=== PATIENT | female | born 1990 | race Caucasian/White ===

== ENCOUNTER → 2018-10-07 | Outpatient (CLI) | payer SELFPAY ==
[2018-10-07 11:01] VITALS: BMI 22.7
[2018-10-07 12:02] LABS: Absolute Lymphocyte Count 2.55 X10^3/uL (0.83-4.51); Absolute Neutrophil Count 7.2 X10^3/uL (2.0-7.7); Basophil# 0.02 X10^3/uL; Basophil% 0.2 % (0-1); Eosinophil# 0.02 X10^3/uL; Eosinophils% 0.2 % (0-5); Hematocrit 39.7 % (37-47); Hemoglobin 13.2 g/dL (12.0-15.0); Lymphocyte # 2.55 X10^3/ul (4.0); Mean Corp Hgb Conc 33.2 g/dL (32-36); Mean Corpuscular Volume 96.1 fL (81-99); Mean Platelet Vol. 10.9 fl (6.2-12.0); Monocyte# 0.43 X10^3/uL; Monocyte% 4.2 % (0-10); NRBC Flagged by Analyzer 0 % (0-5); Neutrophil # 7.15 X10^3/uL (2.7-7.7); Neutrophil % 69.9 % (47-70); Platelet Count 163 K/mm3 (150-450); RBC Distribution Width SD 45.4 fl (35.1-43.9); Red Blood Count 4.13 M/mm3 (4.2-5.4); White Blood Count 10.2 K/mm3 (4.4-11.0)
== END | disposition home or self-care (01) ==
PROVIDERS: Nurse Practitioner Women's Health; Referring Provider Obstetrics & Gynecology; Visit Provider Obstetrics & Gynecology
DX: Z34.90 Encounter for supervision of normal pregnancy, unspecified, unspecified trimester (principal)
CPT/HCPCS: 36415; 85025

== ENCOUNTER → 2018-12-11 | Outpatient (CLI) | payer SELFPAY ==
[2018-12-11 09:33] VITALS: BMI 22.7
== END | disposition home or self-care (01) ==
LOC: LABSPEC 12:58
PROVIDERS: Referring Provider Nurse Practitioner Women's Health; Visit Provider Nurse Practitioner Women's Health
DX: Z34.93 Encounter for supervision of normal pregnancy, unspecified, third trimester (principal); Z3A.36 36 weeks gestation of pregnancy
CPT/HCPCS: 87081

== ENCOUNTER 2018-12-17 08:15 | Inpatient (IN) | payer SELFPAY ==
[2018-12-16 12:10] VITALS: BMI 22.7
[2018-12-17 08:49] VITALS: BMI 24.0
[2018-12-17] MEDS: Lactated Ringers 1,000 ML 50 ML IV (08:55)
[2018-12-17 09:07] LABS: Absolute Lymphocyte Count 1.63 X10^3/uL (0.83-4.51); Absolute Neutrophil Count 10.3 X10^3/uL (2.0-7.7); Basophil# 0.02 X10^3/uL; Basophil% 0.2 % (0-1); Eosinophil# 0.02 X10^3/uL; Eosinophils% 0.2 % (0-5); Hematocrit 41.4 % (37-47); Lymphocyte # 1.63 X10^3/ul (4.0); Lymphocyte % 13.1 % (19-41); Mean Corp Hgb Conc 33.8 g/dL (32-36); Mean Corpuscular Volume 94.7 fL (81-99); Mean Platelet Vol. 11.5 fl (6.2-12.0); Monocyte# 0.41 X10^3/uL; Monocyte% 3.3 % (0-10); NRBC Flagged by Analyzer 0 % (0-5); Neutrophil # 10.33 X10^3/uL (2.7-7.7); Neutrophil % 82.7 % (47-70); Platelet Count 145 K/mm3 (150-450); RBC Distribution Width CV 12.8 % (11.6-14.6); RBC Distribution Width SD 44.9 fl (35.1-43.9); Red Blood Count 4.37 M/mm3 (4.2-5.4); White Blood Count 12.5 K/mm3 (4.4-11.0)
--- NOTE | 2018-12-17 09:19 | PCM.HP.OB ---
- Problem List (1) History of PROM (premature rupture of membranes), currently Status: Acute Qualifiers: Comment: Del at 36.1 due to PROM, no progesterone injections rec by previous provider, patient declines. (2) Status: Acute Qualifiers: Comment: declined genetic screening; home BS testing for diabetes screening negative. negative urine culture on 06/12/2018 (3) Shingles outbreak Status: Acute Qualifiers: Comment: first trimester (4) Supervision of other normal Status: Acute Comment: PRR DENISE 01/[birth year]/19 girl Nidia JEAN Diaz Spouse:Dk GERARD at 27 wk from [facility] History Date of Admission: 12/17/18 Final DENISE: 01/06/19 Gestational age: 37 Weeks and 1 Days History of this : This is a 27 year-old, , at 37 weeks gestational age presents with SROM clear fluid in active labor 4 cm. she is doing well and tolerating contractions. 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 Date Name GA/Weeks Outcome Route Bth Weight Infant Gen Labor Lgth Anesthesia Del Locatn Provider FOB 08/15/15 Emily 36 live - 6 lbs. 5 oz. Dk Labs: DENISE Calculator Estimated Delivery Date Method Current WG Current Estimate 01/06/19 LMP (Certain) 37w 0d Expected Delivery Route/Plan - 27 week GERARD [facility], from [place] Labor Preferences- labor support person: dk pain management options preferred: minimal intervention cut cord/dad catch: : yes PP control planned: discussed possible routes of delivery and associated risks: [] special requests: [] Specific Issue/Plans flu vaccine: declined tdap vaccine: declined rhogam: na LARC form signed: declined Mom's Labs & Results 12/17/18 12/17/18 08:55 08:55 WBC 12.5 H RBC 4.37 Hgb 14.0 Hct 41.4 MCV 94.7 MCH 32.0 MCHC 33.8 RDW Std Deviation 44.9 H RDW Coeff of Leighton 12.8 Plt Count 145 L MPV 11.5 Immature Gran % (Auto) 0.500 Neut % (Auto) 82.7 H Lymph % (Auto) 13.1 L [place] % (Auto) 3.3 Eos % (Auto) 0.2 Baso % (Auto) 0.2 Absolute Neuts (auto) 10.3 H Absolute Lymphs (auto) 1.63 Nucleated RBC % 0 Blood Type Pending Antibody Screen Pending Course Did the patient receive Yes care? Labs Blood Type: O RH: POSITIVE RPR/VDRL/Syphilis Nonreactive Rubella status Immune HbSAg Negative Date Done: 06/12/18 Chlamydia Negative Gonorrhea Negative HIV/AIDS Non-Reactive Group B Strep: Negative Current Obstetrical History Gestational Diabetes No Incompetent Cervix No Infertility No IUGR No Macrosomia No Hypertension/Pre-eclampsia No Placenta Previa/Abruption No PTL/PROM No Uterine anomaly No Oligohydramnios No Polyhydramnios No Multiple gestation No Past Medical History Asthma No Diabetes No Hypertension No Heart disease No Mitral valve prolapse No Neurologic/Seizure disorder/ No Migraines Kidney disease No Liver disease No Varicosities No Clotting disorders/Hx of DVT No Thyroid Dysfunction No Other medical diseases Yes Psychiatric disorders No Major trauma No Abnormal PAP smear No Sleep apnea No Mammogram in the last 2 years No Enter DETAILS of medical raynaud's history Social History Marital Status: Alleged father Dk Hx Smoking No Smoking Status Never smoker How long have you used n/a substances (years)? Expected Delivery Method: Spontaneous Vaginal Review of Systems Constitutional: Denies: Fever, Malaise Eyes: Denies: Blurred vision, Vision Change HEENT: Denies: Head Aches, Visual Changes Cardiovascular: Denies: Chest Pain, Palpitations Respiratory: Denies: Cough, Shortness of Breath, Wheezing Gastrointestinal: Denies: Abdominal Pain, Diarrhea, Nausea, Vomiting Genitourinary: Denies: Dysuria, Hematuria Musculoskeletal: Denies: Joint Pain, Muscle pain Skin: Denies: Lesions, Rash Neurological: Denies: Blurred vision, Focal weakness, Headaches Psychiatric: Denies: Anxiety, Depression Endocrine: Denies: Heat/ Cold Intolerance Hematologic/ Lymphatic: Denies: Easy Bruising, Easy Bleeding Physical Exam General: Alert, Cooperative, No apparent distress HEENT: Atraumatic, Normocephalic. Negative for: Thyromegaly, Lymphadenopathy Cardiovascular: Regular rate Lungs: Normal air movement Abdomen: Soft, Non Tender, Gravid Neurological: Deep Tendon Reflexes 2+/4 and Symmetrical, Neuro grossly intact. 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 Negative for: Vulvar lesions Estimated gestational size: Appropriate for gestational size Presentation: Cephalic Cervix Dilation (cm): 4 Assessment/Plan All Active Problems (Last Reviewed 12/16/18 @ 12:09 by Emma Grimes) Shingles outbreak (Acute) History of PROM (premature rupture of membranes), currently (Acute) (Acute) Supervision of other normal (Acute) This is a 27 year-old, at 37 weeks gestational age presents with SROM IAL Patient presents IAL, plan expectant management for , pitocin if needed. Pain management: Refers minimal intervention. GBS negative. Management of any complications: None I have reviewed the [facility] and made any clinically relevant updates.
[2018-12-17] MEDS: Oxytocin 30 units/NS 500 ml 30 UNITS/500 ML IV.SOLN 334 UNITS IV (12:22)
--- NOTE | 2018-12-17 12:48 | PCM.OPRPT ---
Problem List (1) History of PROM (premature rupture of membranes), currently Status: Acute Qualifiers: Comment: Del at 36.1 due to PROM, no progesterone injections rec by previous provider, patient declines. (2) Status: Acute Qualifiers: Comment: declined genetic screening; home BS testing for diabetes screening negative. negative urine culture on 06/12/2018 (3) Shingles outbreak Status: Acute Qualifiers: Comment: first trimester (4) Supervision of other normal Status: Acute Comment: PRR DENISE 01/06/19 girl Nidia Diaz Spouse:Luis GEE at 27 wk from [facility] Vaginal Delivery Maternal Presentation: Active Labor ial 37 weeks Amniotic Membrane Rupture Type: Spontaneous at home Amniotic Fluid Description: Clear Final DENISE: 01/05/19 Gestational age: 37 Weeks and 2 Days Date of Procedure: 12/17/18 Pre-Operative Diagnosis: ial Post-Operative Diagnosis: same Surgery/ Procedure Performed: Spontaneous Vaginal Delivery Description of Procedure: Patient began pushing and delivered the head in the JENNIFER presentation. The head was delivered atraumatically and a loose nuchal cord ?1 was identified and easily reduced over the 's head. The anterior and posterior shoulders delivered without complication followed by the rest of the infant and the infant was placed on the maternal abdomen. Delayed cord clamping was employed for approximately 60 seconds. Cord was clamped and cut and gentle traction was applied to the cord and the placenta delivered spontaneously immediately following it was noted to be intact with three-vessel cord. The perineum and vagina were inspected and noted to have no laceration. EBL was 200. Patient and tolerated delivery well. Presentation: JENNIFER Placental Delivery Description: Spontaneous Placenta Disposition: [facility] Cord Vessel Description: 3 Vessels Cord Entanglement: Around neck x 1, loose Estimated Blood Loss: 200 A gender: Female Episiotomy Description: None Laceration: None Medications given after delivery: IV Pitocin Complications: None Multi Select Codes - Urinary/Genital Urinary/Genital CPT Codes: 90901 Vaginal Delivery [facility]
[2018-12-17] MEDS: 0.9% Saline Lock 10 ML Syringe IV (15:00)
[2018-12-17 15:46] VITALS: BP 116/77; PULSE 90; RESP 16; TEMP 36.9
[2018-12-17 20:24] VITALS: BP 132/76; PULSE 78; RESP 16; TEMP 37.4
[2018-12-18 00:09] VITALS: BP 128/86; PULSE 83; RESP 16; TEMP 37.2
[2018-12-18 04:00] VITALS: BP 104/60; PULSE 77; RESP 15; TEMP 37.2
--- NOTE | 2018-12-18 08:04 | PN.OBGYN_ITS ---
Subjective: doing well no complaints pain controlled no CP SOB N V ambulating well tolerating po lochia moderate, going well - Physical Exam Vitals/I&O's: Vital Signs Temp Pulse Resp BP 99.0 F 77 15 104/60 12/18/18 04:00 12/18/18 04:00 12/18/18 04:00 12/18/18 04:00 Oxygen Delivery Method Room Air Weight: 172 lb 13.478 oz Body Mass Index (BMI) 24.0 Intake and Output for Last 24 Hours 12/16/18 12/17/18 12/18/18 23:59 23:59 23:59 Intake Total 672.5 / 672.5 Output Total 550 / 550 Balance 122.5 / 122.5 General: Alert, Oriented x3 Abdomen: Soft, Non Tender, Non-Distended, - - FF below U Laboratory Results 12/17/18 08:55: WBC 12.5 H, RBC 4.37, Hgb 14.0, Hct 41.4, MCV 94.7, MCH 32.0, MCHC 33.8, RDW Std Deviation 44.9 H, RDW Coeff of Leighton 12.8, Plt Count 145 L, MPV 11.5, Immature Gran % (Auto) 0.500, Neut % (Auto) 82.7 H, Lymph % (Auto) 13.1 L, [place] % (Auto) 3.3, Eos % (Auto) 0.2, Baso % (Auto) 0.2, Absolute Neuts (auto) 10.3 H, Absolute Lymphs (auto) 1.63, Nucleated RBC % 0 12/17/18 08:55: Blood Type O POSITIVE, Antibody Screen NEGATIVE Current Medications Acetaminophen (Tylenol) 1,000 mg PO Q8H PRN PRN PRN Reason: Pain Score 1-3/10 Bisacodyl (Dulcolax) 10 mg RECTAL UD PRN PRN Reason: If no BM Dibucaine (Dibucaine) 1 applic TOPICAL TID PRN PRN; Protocol PRN Reason: Discomfort Hydrocortisone (Hytone) 1 applic TOPICAL TID PRN PRN; Protocol PRN Reason: Discomfort Methylergonovine Maleate (Methergine) 0.2 mg IM X1 PRN PRN Reason: Excess bleeding/uterine atony Naproxen (Naprosyn) 500 mg PO Q8H PRN PRN PRN Reason: Pain Score 1-3/10 Ondansetron HCl (Zofran) 4 mg IV Q4H PRN PRN PRN Reason: Nausea Oxycodone HCl (Oxyir) 5 - 10 mg PO Q4H PRN PRN PRN Reason: Pain Score 4-10/10 Senna/Docusate Sodium (Senokot-S, Ivis-Colace) 1 - 2 tablet PO DAILY PRN PRN PRN Reason: Constipation Simethicone (Mylicon) 80 mg PO PCHS PRN PRN Reason: Indigestion/Stomach pain Sodium Chloride () 5 - 15 ml IV UD PRN PRN Reason: SALINE FLUSH Last Admin: 12/17/18 15:00 Dose: 10 ml Documented by: Medical Necessity - Tobacco Use Smoking Status: Never smoker Assessment/Plan All Active Problems (Last Reviewed 12/16/18 @ 12:09 by Emma Grimes) Shingles outbreak (Acute) History of PROM (premature rupture of membranes), currently (Acute) (Acute) Supervision of other normal (Acute) s/p PPD # 1 1. routine post delivery care 2. breast feeding- support given 3. rh positive 4. rubella immune 5. considering discharge later this pm
--- NOTE | 2018-12-18 08:05 | DCINST_ITS ---
Additional Instructions: If you experience any of the following, contact your healthcare provider. * Bleeding that soaks a pad every hour for 2 hours * Fever 100.4 or higher * Unrelieved incision or abdominal pain * Swelling, redness, discharge or bleeding from your incision or episiotomy site * Your incision begins to separate * Problems urinating (including inability to urinate or burning while urinating). * Visual changes * Severe headache * Flu-like symptoms * Pain or redness in one of both of your breasts * Pain, warmth, tenderness or swelling in your legs, especially the calf area * Frequent nausea and vomiting * Symptoms of depression or anxiety If you experience any of the following, call 911 or go to the nearest Emergency Room. * Chest pain * Problems breathing * Seizure activity * Partial or complete paralysis of a body part, slurred speech, weakness or drooping of the face, or a sudden inability to walk or hold your balance Allergies/Adverse Reactions: Allergies No Known Allergies Allergy (Verified 12/17/18 08:50) Medications to take at Discharge docosahexanoic acid 200 mg capsule mg PO cap 10/07/18 Vits [Prenatabs FA ] 1 tab PO DAILY 12/17/18 Primary Care Physician: LALITA HENDERSON [Other] Test Results: Test results from this visit will be discussed in further detail at your follow- up appointment, if applicable.
--- NOTE | 2018-12-18 08:05 | PCM.DCVAG ---
Additional Instructions: If you experience any of the following, contact your healthcare provider. Bleeding that soaks a pad every hour for 2 hours Fever 100.4 or higher Unrelieved incision or abdominal pain Swelling, redness, discharge or bleeding from your incision or episiotomy site Your incision begins to separate Problems urinating (including inability to urinate or burning while urinating). Visual changes Severe headache Flu-like symptoms Pain or redness in one of both of your breasts Pain, warmth, tenderness or swelling in your legs, especially the calf area Frequent nausea and vomiting Symptoms of depression or anxiety If you experience any of the following, call 911 or go to the nearest Emergency Room. Chest pain Problems breathing Seizure activity Partial or complete paralysis of a body part, slurred speech, weakness or drooping of the face, or a sudden inability to walk or hold your balance Allergies/Adverse Reactions: Allergies No Known Allergies Allergy (Verified 12/17/18 08:50) Medications to take at Discharge docosahexanoic acid 200 mg capsule mg PO cap 10/07/18 Vits [Prenatabs FA ] 1 tab PO DAILY 12/17/18 Primary Care Physician: LALITA HENDERSON [Other] Test Results: Test results from this visit will be discussed in further detail at your follow-up appointment, if applicable.
[2018-12-18 10:00] VITALS: BP 113/81; PULSE 98; RESP 16; TEMP 36.7
[2018-12-18 13:00] VITALS: BP 113/73; PULSE 68; RESP 16; TEMP 36.8
[2018-12-18 15:13] VITALS: BP 110/68; PULSE 70; RESP 16; TEMP 37.1
[2018-12-18 20:32] VITALS: BP 122/85; PULSE 66; RESP 16; TEMP 37.1
[2018-12-19 02:43] VITALS: BP 104/61; PULSE 61; RESP 16; TEMP 36.8
--- NOTE | 2018-12-19 08:44 | PCM.PN.OB ---
Subjective: doing well no complaints pain controlled no CP SOB N V ambulating well tolerating po lochia moderate, going well - Physical Exam Vitals/I&O's: Vital Signs Temp Pulse Resp BP 98.3 F 61 16 104/61 12/19/18 02:43 12/19/18 02:43 12/19/18 02:43 12/19/18 02:43 Oxygen Delivery Method Room Air Weight: 172 lb 13.478 oz Body Mass Index (BMI) 24.0 Intake and Output for Last 24 Hours 12/17/18 12/18/18 12/19/18 23:59 23:59 23:59 Intake Total 672.5 / 672.5 Output Total 550 / 550 Balance 122.5 / 122.5 General: Alert, Oriented x3 Current Medications Acetaminophen (Tylenol) 1,000 mg PO Q8H PRN PRN PRN Reason: Pain Score 1-3/10 Bisacodyl (Dulcolax) 10 mg RECTAL UD PRN PRN Reason: If no BM Dibucaine (Dibucaine) 1 applic TOPICAL TID PRN PRN; Protocol PRN Reason: Discomfort Hydrocortisone (Hytone) 1 applic TOPICAL TID PRN PRN; Protocol PRN Reason: Discomfort Methylergonovine Maleate (Methergine) 0.2 mg IM X1 PRN PRN Reason: Excess bleeding/uterine atony Naproxen (Naprosyn) 500 mg PO Q8H PRN PRN PRN Reason: Pain Score 1-3/10 Ondansetron HCl (Zofran) 4 mg IV Q4H PRN PRN PRN Reason: Nausea Oxycodone HCl (Oxyir) 5 - 10 mg PO Q4H PRN PRN PRN Reason: Pain Score 4-10/10 Senna/Docusate Sodium (Senokot-S, Ivis-Colace) 1 - 2 tablet PO DAILY PRN PRN PRN Reason: Constipation Simethicone (Mylicon) 80 mg PO PCHS PRN PRN Reason: Indigestion/Stomach pain Sodium Chloride () 5 - 15 ml IV UD PRN PRN Reason: SALINE FLUSH Last Admin: 12/17/18 15:00 Dose: 10 ml Documented by: Medical Necessity - Tobacco Use Smoking Status: Never smoker Assessment/Plan All Active Problems (Last Reviewed 12/16/18 @ 12:09 by Emma Grimes) Shingles outbreak (Acute) History of PROM (premature rupture of membranes), currently (Acute) (Acute) Supervision of other normal (Acute) s/p PPD # 2 1. routine post delivery care 2. breast feeding- support given 3. rh positive 4. rubella immune
[2018-12-19 09:08] VITALS: BP 107/67; PULSE 68; RESP 16; TEMP 36.6
[2018-12-19 12:53] VITALS: BP 102/68; PULSE 62; RESP 14; RESP 16; TEMP 36.6
== END 2018-12-19 13:10 | disposition home or self-care (01) | DRG 807 ==
PROVIDERS: Admitting Provider Obstetrics & Gynecology; Visit Provider Obstetrics & Gynecology
DX: O60.14X0 Preterm labor third trimester with preterm delivery third trimester, not applicable or unspecified (principal); Z37.0 Single live birth; O69.81X0 Labor and delivery complicated by cord around neck, without compression, not applicable or unspecified; Z3A.37 37 weeks gestation of pregnancy
CPT/HCPCS: 59025; 59050; 85025; 86850; 86900; 86901; 99218; J7120; A4216; G0378

== ENCOUNTER → 2019-02-03 18:18 | Outpatient (CLI) | payer SELFPAY ==
[2019-02-03 14:34] VITALS: BMI 24.0
[2019-02-10 12:54] LABS: HPV APTIMA, High Risk Negative (Negative)
== END ==
PROVIDERS: Referring Provider Nurse Practitioner Women's Health; Visit Provider Nurse Practitioner Women's Health
DX: Z12.4 Encounter for screening for malignant neoplasm of cervix (principal)
CPT/HCPCS: 87624; 88175; G0145

== ENCOUNTER → 2020-02-19 | Outpatient (CLI) | payer SELFPAY ==
[2020-02-19 11:48] VITALS: BMI 20.3
== END | disposition home or self-care (01) ==
LOC: LABSPEC 17:19
PROVIDERS: Visit Provider Obstetrics & Gynecology
DX: N39.46 Mixed incontinence (principal); N89.8 Other specified noninflammatory disorders of vagina
CPT/HCPCS: 87070; 87086; 87205

== ENCOUNTER → 2020-08-30 14:21 | Outpatient (CLI) | payer SELFPAY ==
[2020-08-30 13:55] VITALS: BMI 20.3
[2020-08-30 15:09] LABS: Absolute Lymphocyte Count 2.77 X10^3/uL (0.83-4.51); Absolute Neutrophil Count 9.5 X10^3/uL (2.0-7.7); Basophil# 0.03 X10^3/uL; Basophil% 0.2 % (0-1); Eosinophil# 0.04 X10^3/uL; Eosinophils% 0.3 % (0-5); Hematocrit 40.7 % (37-47); Hemoglobin 13.9 g/dL (12.0-15.0); Lymphocyte # 2.77 X10^3/ul (0.83-4.51); Lymphocyte % 21.6 % (19-41); Mean Corp Hgb Conc 34.2 g/dL (32-36); Mean Corpuscular Hgb 30.6 pg (27.0-32.0); Mean Corpuscular Volume 89.6 fL (81-99); Mean Platelet Vol. 10.4 fl (6.2-12.0); Monocyte# 0.44 X10^3/uL; Monocyte% 3.4 % (0-10); NRBC Flagged by Analyzer 0 % (0-5); Platelet Count 228 K/mm3 (150-450); RBC Distribution Width CV 11.9 % (11.6-14.6); RBC Distribution Width SD 38.9 fl (35.1-43.9); Red Blood Count 4.54 M/mm3 (4.2-5.4); White Blood Count 12.8 K/mm3 (4.4-11.0)
[2020-08-30 16:00] LABS: HIV - WCH Non-Reactive (Nonreactive); Hepatitis B Surface Antigen Non-Reactive (Nonreactive); Hepatitis C Antibody Non-Reactive (Nonreactive); Rubella IgG Reactive (Nonreactive); Syphilis Antibodies Non-reactive
[2020-08-30 17:33] LABS: Amphetamine Urine VISTA NEGATIVE (<1000 ng/mL); Barbiturate Urine VISTA NEGATIVE (< 200 ng/mL); Benzodiazepine Urine VISTA NEGATIVE (< 200 ng/mL); Cocaine Urine VISTA NEGATIVE (< 300 ng/mL); Ecstacy Urine VISTA NEGATIVE (< 500 ng/mL); Methadone Urine VISTA NEGATIVE (< 300 ng/mL); PCP Urine VISTA NEGATIVE (< 25 ng/mL); THC Urine VISTA NEGATIVE (< 50 ng/mL); Vista UDS pH Range 6
[2020-09-02 03:07] LABS: Chlamydia By Nucleic Acid AMP Negative (Negative)
[2020-09-02 07:58] LABS: Gonococcus By Nucleic Acid AMP Negative (Negative)
[2020-09-02 15:16] LABS: HPV APTIMA, High Risk Negative (Negative)
== END ==
PROVIDERS: Referring Provider Obstetrics & Gynecology; Visit Provider Obstetrics & Gynecology
DX: Z34.90 Encounter for supervision of normal pregnancy, unspecified, unspecified trimester (principal)
CPT/HCPCS: 36415; 80307; 85025; 86703; 86762; 86780; 86803; 86850; 86900; 86901; 87086; 87088; 87340; 87491; 87591; 87624; 88175; G0145

== ENCOUNTER → 2020-11-10 08:20 | Outpatient (CLI) | payer SELFPAY ==
--- NOTE | 2020-11-10 08:22 | US_ITS ---
STUDY: SECOND AND THIRD TRIMESTER OBSTETRICAL ULTRASOUND REASON FOR EXAM: Female, 29 years old anatomy LMP: 06/25/2020. TECHNIQUE: Transabdominal and Transvaginal TECHNICAL QUALITY: Adequate. PRIOR ULTRASOUND: None. FINDINGS: There is a single intrauterine fetus. The fetus is in a transverse lie with the head on the maternal right side. There is demonstrated cardiac activity with a heart rate of 144 bpm. There is a normal amniotic fluid volume. The largest amniotic fluid pocket measures 5.8 cm x 5.5 cm. The amniotic fluid index (SKY) is within normal limits. The placenta is anterior in location and is not low lying. There are Grade 0 placental changes. The cervix measures 5.2 cm in length. The adnexal regions are not visualized. BIOMETRY: BPD: 4.8 cm: 20 weeks, 3 days HC: 17.7 cm: 20 weeks, 1 days AC: 16.2 cm: 21 weeks, 1 days FL: 3.1 cm: 19 weeks, 4 days CI: 81% FL/BPD: 65% FL/HC: FL/AC: 19% HC/AC: 1.09 age by current US: 20 weeks, 1 days. DENISE by current US: 03/29/2021. Estimated weight: 362 grams, +/- 54 grams, 87 %. Age by LMP: 19 weeks, 5 days. DENISE by LMP: 04/01/2021. ANATOMY: Gender: Male Cranium: Normal lateral ventricles. Normal choroid plexus. Normal cerebellum. Normal cisterna magna. Normal face, nose and lips. Chest: Normal 4-chamber heart. Abdomen/Pelvis: Normal diaphragm. Normal stomach. Normal abdominal wall. Normal cord insertion. Normal 3 vessel cord. Normal kidneys. Normal bladder. Spine: Normal cervical spine. Normal thoracic spine. Normal lumbar spine. Normal sacrum. Extremities: Normal bilateral upper extremities. Normal bilateral lower extremities. IMPRESSION: Single live intrauterine gestation with a mean gestational age of 20 weeks and 1 day. Electronically Signed: Jose Alberto Hyman MD at 10:37 EDT , Service support , STUDY: FIRST TRIMESTER OBSTETRICAL ULTRASOUND REASON FOR EXAM: Female, 29 years old. Cervical measurement. TECHNIQUE: Transvaginal TECHNICAL QUALITY: Adequate. PRIOR ULTRASOUND: None. FINDINGS: Transvaginal examination for measurement of the cervix. The cervix measures 5.2 cm in length. US/OB Anatomy Scan IMPRESSION: Cervical length measures 5.2 cm cyst. Electronically Signed: Jose Alberto Hyman MD at 10:38 EDT , Service support ,
--- NOTE | 2020-11-10 08:22 | US_ITS ---
STUDY: SECOND AND THIRD TRIMESTER OBSTETRICAL ULTRASOUND REASON FOR EXAM: Female, 29 years old anatomy LMP: 06/25/2020. TECHNIQUE: Transabdominal and Transvaginal TECHNICAL QUALITY: Adequate. PRIOR ULTRASOUND: None. FINDINGS: There is a single intrauterine fetus. The fetus is in a transverse lie with the head on the maternal right side. There is demonstrated cardiac activity with a heart rate of 144 bpm. There is a normal amniotic fluid volume. The largest amniotic fluid pocket measures 5.8 cm x 5.5 cm. The amniotic fluid index (SKY) is within normal limits. The placenta is anterior in location and is not low lying. There are Grade 0 placental changes. The cervix measures 5.2 cm in length. The adnexal regions are not visualized. BIOMETRY: BPD: 4.8 cm: 20 weeks, 3 days HC: 17.7 cm: 20 weeks, 1 days AC: 16.2 cm: 21 weeks, 1 days FL: 3.1 cm: 19 weeks, 4 days CI: 81% FL/BPD: 65% FL/HC: FL/AC: 19% HC/AC: 1.09 age by current US: 20 weeks, 1 days. DENISE by current US: 03/29/2021. Estimated weight: 362 grams, +/- 54 grams, 87 %. Age by LMP: 19 weeks, 5 days. DENISE by LMP: 04/01/2021. ANATOMY: Gender: Male Cranium: Normal lateral ventricles. Normal choroid plexus. Normal cerebellum. Normal cisterna magna. Normal face, nose and lips. Chest: Normal 4-chamber heart. Abdomen/Pelvis: Normal diaphragm. Normal stomach. Normal abdominal wall. Normal cord insertion. Normal 3 vessel cord. Normal kidneys. Normal bladder. Spine: Normal cervical spine. Normal thoracic spine. Normal lumbar spine. Normal sacrum. Extremities: Normal bilateral upper extremities. Normal bilateral lower extremities. IMPRESSION: Single live intrauterine gestation with a mean gestational age of 20 weeks and 1 day. Electronically Signed: Jose Alberto Hyman MD at 10:37 EDT , Service support , STUDY: FIRST TRIMESTER OBSTETRICAL ULTRASOUND REASON FOR EXAM: Female, 29 years old. Cervical measurement. TECHNIQUE: Transvaginal TECHNICAL QUALITY: Adequate. PRIOR ULTRASOUND: None. FINDINGS: Transvaginal examination for measurement of the cervix. The cervix measures 5.2 cm in length. US/Transvaginal w/Preg US IMPRESSION: Cervical length measures 5.2 cm cyst. Electronically Signed: Jose Alberto Hyman MD at 10:38 EDT , Service support ,
== END ==
PROVIDERS: Referring Provider Obstetrics & Gynecology; Visit Provider Obstetrics & Gynecology
DX: Z34.80 Encounter for supervision of other normal pregnancy, unspecified trimester (principal)
CPT/HCPCS: 76805; 76817

== ENCOUNTER → 2023-01-03 | Outpatient (CLI) | payer MEDICAID, SELFPAY ==
[2023-01-03 12:20] LABS: Absolute Lymphocyte Count 2.78 X10^3/uL (0.83-4.51); Absolute Neutrophil Count 9.9 X10^3/uL (2.0-7.7); Basophil# 0.04 X10^3/uL; Basophil% 0.3 % (0-1); Eosinophil# 0.07 X10^3/uL; Eosinophils% 0.5 % (0-5); Hematocrit 41.9 % (37-47); Hemoglobin 13.9 g/dL (12.0-15.0); Lymphocyte # 2.78 X10^3/ul (0.83-4.51); Mean Corp Hgb Conc 33.2 g/dL (32-36); Mean Corpuscular Hgb 29.9 pg (27.0-32.0); Mean Corpuscular Volume 90.1 fL (81-99); Mean Platelet Vol. 10.9 fl (6.2-12.0); Monocyte# 0.45 X10^3/uL; Monocyte% 3.4 % (0-10); NRBC Flagged by Analyzer 0 % (0-5); Neutrophil # 9.87 X10^3/uL (2.7-7.7); Neutrophil % 74.4 % (47-70); Platelet Count 243 K/mm3 (150-450); RBC Distribution Width CV 12.2 % (11.6-14.6); RBC Distribution Width SD 39.5 fl (35.1-43.9); Red Blood Count 4.65 M/mm3 (4.2-5.4); White Blood Count 13.3 K/mm3 (4.4-11.0)
[2023-01-03 13:15] LABS: HIV - WCH Non-Reactive (Nonreactive); Hepatitis B Surface Antigen Non-Reactive (Nonreactive); Hepatitis C Antibody Non-Reactive (Nonreactive); Rubella IgG Reactive (Nonreactive); Syphilis Antibodies Non-reactive
[2023-01-08 18:07] LABS: Chlamydia By Nucleic Acid AMP Negative (Negative); Gonococcus By Nucleic Acid AMP Negative (Negative)
== END | disposition home or self-care (01) ==
PROVIDERS: PCP Physician Assistant; Referring Provider Advanced Practice Midwife; Visit Provider Advanced Practice Midwife
DX: Z34.90 Encounter for supervision of normal pregnancy, unspecified, unspecified trimester (principal); Z3A.00 Weeks of gestation of pregnancy not specified
CPT/HCPCS: 36415; 85025; 86703; 86762; 86780; 86803; 86850; 86900; 86901; 87086; 87088; 87340; 87491; 87591

== ENCOUNTER 2023-02-05 10:26 | Inpatient (IN) | payer MEDICAID, SELFPAY ==
[2023-02-05] VITALS (14 sets, daily range): BP systolic 105–148; BP diastolic 56–92; PULSE 69–90; RESP 16; TEMP 36.2–37.6; O2SAT 95–100; BMI 20.6; BMI 23.7
--- NOTE | 2023-02-05 10:38 | US_ITS ---
PROCEDURE: SECOND AND THIRD TRIMESTER OBSTETRICAL ULTRASOUND REASON FOR EXAM: Female, 32 years old. Premature rupture membranes LMP: 10/23/2022 TECHNIQUE: Transabdominal PRIOR ULTRASOUND: None. FINDINGS: There is a single intrauterine fetus. The fetus is in a vertex presentation. There is demonstrated cardiac activity with a heart rate of 149 bpm. No amniotic fluid is seen. The placenta is fundal in location. There are Grade 0 placental changes. The cervix is not visualized. The bilateral adnexal regions are normal. BIOMETRY: BPD: 2.8 cm: 15 weeks, 0 days HC: 10.2 cm: 14 weeks, 6 days AC: 9.7 cm: 15 weeks, 0 days FL: 1.3 cm: 13 weeks, 6 days CI: 80.2 FL/BPD: 47.6 FL/HC: 13 FL/AC: 15.3 HC/AC: 1.18 age by current US: 14 weeks, 5 days. DENISE by current US: 08/01/2023. Estimated weight: 99 grams, +/- 15 grams. Age by LMP: 15 weeks, 0 days. DENISE by LMP: 07/30/2023. US/OB Limited With Biometrics IMPRESSION: 1. Single live intrauterine fetus in cephalic presentation with an estimated gestational age of 14 weeks and 5 days. 2. Severe oligohydramnios. No amniotic fluid is seen. Electronically Signed: Azeem Christie MD at 13:34 EST ,
--- NOTE | 2023-02-05 10:39 | ED.VIS.FEGU ---
HPI HPI - Female History of Present Illness Chief Complaint: Vag Bld, Preg Detail of Chief Complaint: Gush of fluid followed by blood at 0700 Informant: patient and spouse/S.O. Pain Pain: Positive for Pelvic Pain (Initially no longer) Onset: Hours (0700. Pain-free past hour) Context: Sudden Onset Timing: Intermittent and Lasts (Approximately 2 hours) Quality: Positive for Cramping and Aching Location: Suprapubic Current Severity: Gone Maximum Severity: Moderate Worsened by: - (Nothing) Relieved by: - (Not applicable) Bleeding Issue: Positive for Vaginal bleeding and Passing clots; Negative for Passing tissue Onset: Today and Hours Context: Sudden Onset Timing: Continuous Current Severity: Heavy Maximum Severity: Heavy Associated Symptoms Associated Symptoms: Positive for Frequency and Missed Period; Negative for Dysuria, Urgency or Hematuria Test: Positive Sexually: Positive for Active P: 3 Narrative Narrative: Patient is a 32-year-old female who was sent in by her critical care paramedic because of gush of fluid with positive amniotic fluid test. This is patient's fourth . She had no complications or issues with her first 3 pregnancies. She is 15 weeks[address] She also sees Dr. Yamel Staples. She has a remote history ovarian cyst when she was in high school. There is no history of endometriosis. She does have history of Raynaud's and family history of Down syndrome. Patient states that approximate 0700 she had a gush of fluid. She has had bleeding since. When critical care paramedic evaluated her she had a positive test for amniotic fluid. She was instructed to come to the emergency department. She denies dysuria, frequency, urgency or hematuria. Patient states her cramping pain is resolved. She still having bleeding. She is on no anticoagulant. There is no history of bruising easily. Prior similar symptoms: No Recent Illness/Hospitalization: No PFSH PFSH Medical History Abscess of right thumb Post depression Home Medications vits,calcium no.78-iron fumarate-folic acid 29 mg-1 mg tablet 1 tab PO DAILY 12/17/18 [History Last Taken 12/16/18 08:00] thor root extract 50 mg tablet mg PO 01/02/23 [History Last Taken Unknown] pyridoxine (vitamin B6) 100 mg tablet 100 mg PO DAILY 01/02/23 [History Last Taken Unknown] Allergy/AdvReac Type Severity Reaction Status Date / Time No Known Allergies Allergy Verified 02/05/23 10:27 Family History Brother Depression Sister Depression Grandmother Diabetes Arthritis Heart disease Cancer Maternal cervical Mother Hypertension Grandfather Cancer Aunt Breast cancer, Onset Age: 40 Maternal Grandmother Breast cancer, Onset Age: 54 Paternal w/ Bone Mets Cancer Paternal-Bone Mets Surgical History History of incision and drainage Social History adopted: No household members: spouse and children number of children: 3 current occupational status: unemployed current occupation: [employer] pets and animals: No history of recent travel: No sexually active: Yes Smoking Status: Never smoker alcohol intake: never substance use type: does not use well-balanced diet: daily or most days caffeine: No eating out: 1-3 times/week during the past year weight has: remained stable what type of physical activity do you participate in: none lisa/methodist: Jew seatbelt use: always do you feel safe at home: Yes additional social history: Luis Self employed ROS ROS ED Constitutional Constitutional ED: Denies chills, fever(s) or subjective Eyes Eyes: Denies change in vision Cardiovascular Cardiovascular: Denies chest pain or palpitations Respiratory/Chest Respiratory/Chest: Denies cough, dyspnea or dyspnea on exertion Gastrointestinal Gastrointestinal: Denies abdominal pain, nausea or vomiting Genitourinary Genitourinary ED: Reports urinary frequency; Denies dysuria or hematuria Musculoskeletal Musculoskeletal: Denies arthralgias, myalgias or neck pain Integumentary Denies rash Neurologic Neurologic: Denies paresthesias or weakness Psychiatric Psychiatric: Reports anxiety Endocrine Endocrinology: Denies heat intolerance or polydipsia Hematologic/Lymphatic Hematologic/Lymphatic: Denies easy bleeding or easy bruising Allergic/Immunologic Allergic/Immunologic ED: Denies mouth swelling or tongue swelling EXAM Physical Exam Narrative Exam Narrative: Patient appears slightly anxious. She is thin and pale. Blood pressure is slightly elevated. Const Vital Signs: 02/05/23 10:27 Temperature 97.1 F L Temperature Source Temporal Pulse Rate 86 Respiratory Rate 16 Blood Pressure 148/92 H Blood Pressure Mean 110 Pulse Ox 100 Oxygen Delivery Method Room Air Positive well nourished and well developed General Appearance ED: well developed and NAD; Negative for odor of alcohol detected or pallor HEENT Reports TM's clear and moist mucous membranes HEENT Narrative: Head is atraumatic and normocephalic. Tympanic Membrane ED: Yes TM's clear Eyes PERRL and EOMs intact bilaterally General Eye ED: Negative for pale conjunctiva or scleral icterus Neck no lymphadenopathy, supple and no JVD Resp normal respiratory effort and clear to auscultation bilaterally Cardio regular rate, regular rhythm, S1 normal heart sound, no murmurs and no JVD GI normal to inspection, nondistended, normoactive bowel sounds, soft to palpation, non-tender, non-distended and no masses Back/Spine no CVA tenderness Extremity normal to inspection and full ROM Neuro oriented x3 and CN's II-XII intact bilaterally Sensorium / Orientation: alert Psych Mood & Affect: anxious Skin no rashes or lesions noted and no wounds General Skin Exam: Negative for jaundice or pallor MDM MDM MDM Narrative Medical decision making narrative: Differential diagnosis is false positive amniotic fluid gush versus threatened AB versus demise. H&H was obtained. cryptographic technician was called and in light of the positive amniotic fluid test. If there is any abnormalities I will discuss case with Dr. Tr Dickinson otherwise will discuss case with critical care paramedic. Lab Data Labs: Laboratory Results - last 24 hr 02/05/23 10:45 Hgb 13.1 Hct 38.9 Treatment and Re-Evaluation Narrative: Patient was seen by Dr. Kelsey. Patient had complete rupture and is vaginally bleeding. Patient to be admitted to labor and delivery. Patient will need to be induced. Additional blood work was ordered by Dr. Kelsey. Patient was typed and screened the emergency department. Discharge Plan Triage Chief Complaint: Vag Bld, Preg ED Provider: Abhay Black Dx/Rx/DC Orders Clinical Impression: membranes, spontaneous rupture, Supervision of high-risk , Vaginal bleeding before 22 weeks gestation Prescriptions: No Action thor root extract 50 mg tablet PO pyridoxine (vitamin B6) 100 mg tablet 100 mg PO DAILY vit,[id number] 1 TABLET tablet 1 tab PO DAILY Primary Care Provider: Junior Sheikh Referrals: Junior Sheikh PA-C [Primary Care Provider] - Disposition Disposition: Acute Care Hospital [facility]
[2023-02-05 10:53] LABS: Hematocrit 38.9 % (37-47); Hemoglobin 13.1 g/dL (12.0-15.0)
--- NOTE | 2023-02-05 12:51 | HP.PCM.OB_ITS ---
HPI - General HPI Narrative VERONICA BHANDARI, is a 32 y/o @ 15 weeks gestation who presents to [facility] ER with the complaint of leaking a large amount of fluid and blood starting at 7 am today. She denies fevers or chills. Her marketing community liaison Cass Rangel checked a rom+ that was positive today. She was planning a home with her. Her last term delivery was at home. She has had 3 normal vaginal deliveries. Maternal Data Information DENISE Calculator Estimated Delivery Date Method Current WG Current Estimate 07/30/23 LMP (Certain) 15w 0d PFSH [facility] Medical History Abscess of right thumb Post depression Home Medications vits,calcium no.78-iron fumarate-folic acid 29 mg-1 mg tablet 1 tab PO DAILY 12/17/18 [History Last Taken 12/16/18 08:00] thor root extract 50 mg tablet mg PO 01/02/23 [History Last Taken Unknown] pyridoxine (vitamin B6) 100 mg tablet 100 mg PO DAILY 01/02/23 [History Last Taken Unknown] Allergy/AdvReac Type Severity Reaction Status Date / Time No Known Allergies Allergy Verified 02/05/23 10:27 Family History Brother Depression Sister Depression Grandmother Diabetes Arthritis Heart disease Cancer Maternal cervical Mother Hypertension Grandfather Cancer Aunt Breast cancer, Onset Age: 40 Maternal Grandmother Breast cancer, Onset Age: 54 Paternal w/ Bone Mets Cancer Paternal-Bone Mets Surgical History History of incision and drainage Social History adopted: No household members: spouse and children number of children: 3 current occupational status: unemployed current occupation: [employer] pets and animals: No history of recent travel: No sexually active: Yes Smoking Status: Never smoker alcohol intake: never substance use type: does not use well-balanced diet: daily or most days caffeine: No eating out: 1-3 times/week during the past year weight has: remained stable what type of physical activity do you participate in: none lisa/buddhism: Holiness seatbelt use: always do you feel safe at home: Yes additional social history: Luis Self employed History 4 Elective abortions Hx Para 3 Spontaneous abortions Hx # Term Pregnancies 2 Ectopic pregnancies Hx # Pregnancies 1 Multiple births # of living children 3 Past Pregnancies Del. Date Name GA/Weeks Outcome Route Bth Weight Infant Gen Labor Lgth Anesthesia Del Locatn Provider ILEANA 08/15/15 Emily 36 live - 6 lbs. 5 oz. Luis 12/17/18 Nidia 37 live - full term 6# [address] 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 Relevant counseling for the gestational age provided. Continue routine care and follow up unless otherwise noted in visit notes/problem list details OB Flowsheet Initial Weight: Not Recorded Date -?-?-?-?-?-?-?-?-?-?-?-?- EGA Weight BP Urine Prot -?-?-?-?-?-?-?-?-?-?-?-?- Glucose FHR FuHt Pres Dilation -?-?-?-?-?-?-?-?-?-?-?-?- Effaced St Visit Note 01/03/23 -?-?-?-?-?-?-?-?-?-?-?-?- 10w 2d 147 lb 2 oz 115/70 -?-?-?-?-?-?-?-?-?-?-?-?- 163 -?-?-?-?-?-?-?-?-?-?-?-?- KW-CRL cons with LMP. declines NIPT. Plans co-care/home with Casskrystal Rangel. plans for anatomy US and RTO in 6 weeks ROS Constitutional Constitutional: Denies change in weight, fatigue, fever(s), headache(s), poor appetite or weakness Eyes Eyes: Denies blurry vision, change in vision, seeing flashes or spots in vision ENT HEENT: Denies dizziness, headache(s), loss taste/smell or sore throat Cardiovascular Cardiovascular: Denies chest pain, dizziness, dyspnea, irregular heart rhythm, leg edema, palpitations, rapid heart rate or vomiting Respiratory/Chest Respiratory/Chest: Denies chest tightness, cough, dyspnea or breast pain Gastrointestinal Gastrointestinal: Denies abdominal pain, anorexia, constipation, cramping, diarrhea, hemorrhoids, vomiting or weight changes Genitourinary Genitourinary: Denies dysuria, flank pain, genital lesions, genital pain, urinary frequency or urinary urgency Musculoskeletal Musculoskeletal: Denies back pain, difficulty walking, joint pain, limited range of motion, muscle cramps or numbness Integumentary Integumentary: Denies lesions or unusual bruising Neurologic Neurologic: Denies abnormal movements, abnormal speech, dizziness, numbness, seizure-like activity or syncope Psychiatric Psychiatric: Denies anxiety, behavioral changes, change in appetite, change in libido, cognitive impairment, confusion, depression, difficulty concentrating, hallucinations or suicidal thoughts Endocrine Endocrinology: Denies excessive sweating, polydipsia or polyuria Hematologic/Lymphatic Hematologic/Lymphatic: Denies easy bleeding, easy bruising or lymphadenopathy Allergic/Immunologic Allergic/Immunologic: Denies itchy eyes, lip swelling, seasonal rhinorrhea, rhinitis, throat swelling, tongue swelling, eczemia, wheezing or asthma Vital Signs Vital Signs Vital Signs: 02/05/23 10:27 Temperature 97.1 F L Temperature Source Temporal Pulse Rate 86 Respiratory Rate 16 Blood Pressure 148/92 H Blood Pressure Mean 110 Pulse Ox 100 Oxygen Delivery Method Room Air Weight Weight: 148 lb Body Mass Index (BMI) 20.6 Physical Exam Const alert, oriented x3, no apparent distress and healthy appearing General Appearance: cooperative; Negative for anxious HEENT normocephalic Face and Sinus: normal facial exam Eyes EOMs intact bilaterally and no scleral icterus General Eye: normal appearance of both eyes Neck full ROM and supple Lymph Lymphatic: no lymphadenopathy noted Chest Chest: abnormal inspection of the chest Resp normal respiratory effort Effort and Inspection: able to speak in complete sentences Cardio regular rate GI soft to palpation and non-tender Inspection: gravid Palpation: soft; Negative for tender external exam normal Speculum Exam - Cervix: cervical os open and other moderate blood, debris, and fluid present. cx open all the way to internal os 1/thick/ high. vertex presentation on ultrasound Amniotic Fluid: ROM+plus positive + (at home with marketing community liaison Cass Rangel. ) Back/Spine no CVA tenderness Extremity normal to inspection, full ROM and no clubbing, cyanosis or edema General Extremity: Negative for calf tenderness or edema Skin Lesions: no lesions Rashes: no rashes Psych mental status grossly normal Labs Labs Labs: Blood Type O POSITIVE Antibody Screen NEGATIVE Hct 38.9 % (37-47) Hgb 13.1 g/dL (12.0-15.0) Obstetrics Ultrasound Syphilis Total Ab Non-reactive Rubella IgG Antibody Reactive (Nonreactive) Hep Bs Antigen Non-Reactive (Nonreactive) Hepatitis C Antibody Non-Reactive (Nonreactive) Chlamydia DNA (IRIVNG) Negative (Negative) N.gonorrhoeae DNA (IRVING) Negative (Negative) HIV 1&2 Antibody Non-Reactive (Nonreactive) Rhogam given: No Assessment & Plan (1) Vaginal bleeding before 22 weeks gestation: (2) membranes, spontaneous rupture: (3) Raynauds syndrome: (4) FHx: Down's syndrome: COMMENT: husbands nephew (5) Supervision of high-risk : COMMENT: PRR, , DENISE 07/30/23, Nidia Jimenez Daniel Luis (6) : QUALIFIERS: Weeks of gestation: 10 weeks Qualified Code(s): Z3A.10 - 10 weeks gestation of COMMENT: discussed genetic & carrier testing,declined. Planning Home with Cass Rangel rug layer. PLAN: Plan Non -viable pprom ultrasound shows no fluid around the fetus. There is a heart beat. pt is very tearful recommend induction of labor. patient is deciding coags, type and screen and cbc ordered formal ultrasound ordered
--- NOTE | 2023-02-05 12:52 | NURSING ---
WOMAN'S [facility]O DE [facility] SPONTANEOUS RUPTURED MEMBRANES, VAGINAL BLEEDING
--- NOTE | 2023-02-05 14:04 | EDS_ITS ---
HPI HPI - Female History of Present Illness Chief Complaint: Vag Bld, Preg PFSH PFSH Medical History Abscess of right thumb Post depression Home Medications vits,calcium no.78-iron fumarate-folic acid 29 mg-1 mg tablet 1 tab PO DAILY 12/17/18 [History Last Taken 12/16/18 08:00] thor root extract 50 mg tablet mg PO 01/02/23 [History Last Taken Unknown] pyridoxine (vitamin B6) 100 mg tablet 100 mg PO DAILY 01/02/23 [History Last Taken Unknown] Allergy/AdvReac Type Severity Reaction Status Date / Time No Known Allergies Allergy Verified 02/05/23 10:27 Family History Brother Depression Sister Depression Grandmother Diabetes Arthritis Heart disease Cancer Maternal cervical Mother Hypertension Grandfather Cancer Aunt Breast cancer, Onset Age: 40 Maternal Grandmother Breast cancer, Onset Age: 54 Paternal w/ Bone Mets Cancer Paternal-Bone Mets Surgical History History of incision and drainage Social History adopted: No household members: spouse and children number of children: 3 current occupational status: unemployed current occupation: [employer] pets and animals: No history of recent travel: No sexually active: Yes Smoking Status: Never smoker alcohol intake: never substance use type: does not use well-balanced diet: daily or most days caffeine: No eating out: 1-3 times/week during the past year weight has: remained stable what type of physical activity do you participate in: none lisa/amish: Latter Day seatbelt use: always do you feel safe at home: Yes additional social history: Luis Self employed EXAM Physical Exam Const Vital Signs: 02/05/23 10:27 Temperature 97.1 F L Temperature Source Temporal Pulse Rate 86 Respiratory Rate 16 Blood Pressure 148/92 H Blood Pressure Mean 110 Pulse Ox 100 Oxygen Delivery Method Room Air MDM MDM MDM Narrative Medical decision making narrative: This is an addendum to my originally signed chart. I am unable to print the original chart to make an addendum. I was informed by Dr. Kelsey her concerns. In light of this Zosyn and vancomycin was ordered. Spoke to patient and her . Patient felt I was too blunt . I explained to the that for her to sign out AGAINST MEDICAL ADVICE. After understanding all the risks which include significant disability, organ dysfunction, ventilatory support, loss of uterus, tracheostomy, feeding tube she and her agreed to stay in the hospital. Lab Data Labs: Laboratory Results - last 24 hr 02/05/23 10:45 Hgb 13.1 Hct 38.9 Radiography Diagnostic Testing: Clinical Impression(s) from Imaging Studies Obstetrics Ultrasound 02/05/23 10:38 IMPRESSION: 1. Single live intrauterine fetus in cephalic presentation with an estimated gestational age of 14 weeks and 5 days. 2. Severe oligohydramnios. No amniotic fluid is seen. Electronically Signed: Azeem Christie MD at 13:34 EST , Discharge Plan Dx/Rx/DC Orders Clinical Impression: membranes, spontaneous rupture, Supervision of high-risk , Vaginal bleeding before 22 weeks gestation Disposition Disposition: [facility] Capacity Capacity Assessment Tool Can the patient make a choice & communicate that choice?: Yes (Patient is distraught because she was told that her she had spontaneous rupture of membranes with infection and will lead to demise.) Can the patient understand benefits, risks and alternatives?: Yes Can the patient make a logical, rational choice?: Unable to Determine Is the choice the patient makes consistent w/ their values?: Yes Is there an impending, emergent risk to the patient?: Yes Does the patient have an Advance Directive?: No Is there a Surrogate Available?: Yes i.e. close relative (spouse, child, parent, sibling)?: Yes (After I spoke to the in the hallway and explained all the risks which are significant he spoke to his again. They are willing to stay in the hospital.)
[2023-02-05] MEDS: Lactated Ringers 1,000 ML 125 ML IV ×2 (14:07→20:16)
[2023-02-05 14:11] LABS: Partial Thromboplast Time 29.9 Seconds (24.1-36.2)
[2023-02-05 14:12] LABS: Fibrinogen 391 mg/dl (203-444)
--- NOTE | 2023-02-05 14:13 | NURSING ---
Report called to Sanam in OB, she will be coming to get the pt. Notified no antbx in dept will have pharmacy send to OB.
[2023-02-05 14:17] LABS: Prothrombin Time (Protime)PT. 12.8 SECONDS (11.7-14.9)
[2023-02-05] MEDS: Piperacil/Tazobactam 4.5 GM in 0.9% Normal Saline (100mL MB+) 100 ML IV (14:58)
[2023-02-05] MEDS: Vancomycin HCl 1,750 MG in 0.9% Normal Saline (500mL Bag) 500 ML 250 MG IV (16:22)
[2023-02-05 16:25] LABS: Absolute Lymphocyte Count 2.19 X10^3/uL (0.83-4.51); Absolute Neutrophil Count 12.8 X10^3/uL (2.0-7.7); Basophil# 0.04 X10^3/uL; Basophil% 0.3 % (0-1); Eosinophil# 0.06 X10^3/uL; Eosinophils% 0.4 % (0-5); Hematocrit 39.5 % (37-47); Hemoglobin 13.5 g/dL (12.0-15.0); Lymphocyte # 2.19 X10^3/ul (0.83-4.51); Mean Corp Hgb Conc 34.2 g/dL (32-36); Mean Corpuscular Hgb 30.9 pg (27.0-32.0); Mean Corpuscular Volume 90.4 fL (81-99); Mean Platelet Vol. 11.3 fl (6.2-12.0); Monocyte# 0.56 X10^3/uL; Monocyte% 3.6 % (0-10); NRBC Flagged by Analyzer 0 % (0-5); Neutrophil % 81.5 % (47-70); Platelet Count 234 K/mm3 (150-450); RBC Distribution Width CV 12.8 % (11.6-14.6); RBC Distribution Width SD 42.1 fl (35.1-43.9); Red Blood Count 4.37 M/mm3 (4.2-5.4); White Blood Count 15.7 K/mm3 (4.4-11.0)
[2023-02-05 18:34] LABS: Thyroid Stim Hormone (TSH) 0.64 uIU/mL (0.358-3.74)
[2023-02-05 18:55] LABS: Syphilis Antibodies Non-reactive
--- NOTE | 2023-02-05 18:58 | PCM.PN.BLA ---
Progress Note pt is sitting up in bed appearing much more calm. The bleeding is slowing down now. She started to turn red with the vancomycin infusion but this resolved quickly. on ultrasound exam there is an elongated head extending into the cervix with the neck also elongated and arm draped across the chest. There is a heart beat of 120 bpm pt does not want to do anything until the heart beat stops. She is being medicated with broad spectrum antibiotics due to slight white count and purulent discharge on exam earlier in ER. will start cytotec when she is ready
[2023-02-05] MEDS: miSOPROStol 200 MCG Tablet 400 MCG SL (22:24)
[2023-02-06] VITALS (14 sets, daily range): BP systolic 93–133; BP diastolic 54–80; PULSE 67–115; RESP 16; TEMP 36.9–37.6; O2SAT 98–99
[2023-02-06] MEDS: Vancomycin HCl 1,750 MG in 0.9% Normal Saline (500mL Bag) 500 ML 250 MG IV (00:44)
[2023-02-06] MEDS: Lactated Ringers 1,000 ML 125 ML IV (03:00)
[2023-02-06] MEDS: miSOPROStol 200 MCG Tablet 400 MCG SL (03:34)
--- NOTE | 2023-02-06 03:56 | PLAC_PTH ---
PATHOLOGY RESULTS PATIENT: VERONICA BHANDARI LOC: WP U#:[id number] AGE/SX: 32/F ROOM: WP021 RE02/05/[address]: Dr. Kirsten Lindsay DO : 1990 BED: 1 DIS: 02/06/2023 SPEC #: [id number] RECD: 02/06/23 11:57 STATUS: JIM ALICIA #: [id number] ZOYA: 02/06/23 03:[address]: Kirsten Lindsay DEPT: SURGICAL PATHOLOGY RECD BY: Jacqueline Diaz ENTERED: 02/06/23 11:58 SP TYPE: PLACENTA OTHR DR: Junior Sheikh PA-C Tissues: Placenta, NOS Procedures: Surgery Specimen Level IV HEADER OPERATION: Vaginal delivery PRE-OP DIAGNOSIS: Previable PPROM TISSUE SUBMITTED: Placenta MICROSCOPIC DIAGNOSIS Placenta: Placental disc - immature placenta (50 gm). Membranes - acute chorioamnionitis. Umbilical cord - three blood vessels. See comment. SJ:michael 02/07/2023 COMMENT Placental disc - focal area of submembranous congestion and hemorrhagic area and area of hemorrhage at the maternal surface. MICROSCOPIC DESCRIPTION Slides are reviewed. GROSS DESCRIPTION SPECIMEN: PLACENTA / CLINICAL INFORMATION: A. Weight: Not noted B. Gestational Age: 15 weeks C. Sex: Not noted PLACENTAL WEIGHT (POST FIXATION): 50 gm PLACENTAL DIMENSIONS: 7.5 x 6.0 x 1.2 cm PLACENTAL SHAPE: Usual ovoid PLACENTAL WEIGHT FOR GESTATIONAL AGE: Within 10-99th percentile MEMBRANES - Only a small amount of membrane is present. A. Insertion: Marginal B. Site of rupture from edge: 2.5 cm from edge of placental disc C. Color of membrane: Deng-avelar D. Abnormalities: Sections reveal focal area of hemorrhage. UMBILICAL CORD - Present. A clamp is also noted close to the end of the umbilical cord. A. Color: Deng-avelar B. Insertion: Central C. Length: 14.0 cm D. Diameter: 0.2 cm E. Number of vessels: Three F. Abnormalities: None PLACENTAL DISC - Present A. Color of surface: Deng-avelar B. surface abnormalities: A focal submembranous congested area is noted. C. Maternal surface: Intact with minimal tears. D. Attached retro placental clot: A focal area of blood clot is noted at the maternal surface. E. Cut surface: Dark red and spongy F. Lesions: None G. Separate clot: Absent SECTIONS SUBMITTED: 1. Membrane roll 2. Cord, maternal end 3. Cord, end 4. Placental disc, and maternal surfaces, submembranous area of hemorrhage 5. Placental disc, and maternal surfaces, submembranous area of hemorrhage 6. Placental disc, and maternal surfaces, focal area of hemorrhage at the maternal surface TRICIA:michael 02/06/2023 TC:2 CPT: 92034
[2023-02-06] MEDS: Oxytocin 15 Units/NS 250ml 15 UNITS/250 ML IV.SOLN 83 UNITS IV (03:58)
--- NOTE | 2023-02-06 04:13 | EX.PCM.OBRPT ---
Assessment & Plan (1) premature rupture of membranes with onset of labor within 24 hours of rupture in second trimester: (2) Vaginal bleeding before 22 weeks gestation: (3) membranes, spontaneous rupture: (4) Supervision of high-risk : COMMENT: PRR, , DENISE 07/30/23, Nidia Jimenez Alex Luis (5) : QUALIFIERS: Weeks of gestation: 10 weeks Qualified Code(s): Z3A.10 - 10 weeks gestation of COMMENT: discussed genetic & carrier testing,declined. 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 Maternal Data Information DENISE Calculator Estimated Delivery Date Method Current WG Current Estimate 07/30/23 LMP (Certain) 15w 1d Final DENISE: 07/30/23 Final DENISE Source: LMP Gestational age: 15 weeks 1 day Vaginal Delivery Maternal Presentation Maternal Presentation: Spontaneous Rupture of Membranes Maternal Presentation: The patient presented to the emergency room on 02/05/23 with a large gush of blood and fluid starting at 7:00am. The fetus was noted to be alive for several hours. The patient requested to wait for induction of labor until and if the heart beat stopped. Upon exam there was noted to be purulent like material without odor. She was not in pain or juli but was noted to be 1 cm dilated Type of Induction: Cytotec Medical Reason for Induction: - (previable pprom ) Operative Information Date of Procedure: 02/06/23 Pre-Operative Diagnosis: @ 15 weeks 1 day, Previable PPROM, suspect chorioamnionitis and abruption Post-Operative Diagnosis: @ 15 weeks 1 day, Previable PPROM, suspect chorioamnionitis and abruption Surgery / Procedure Performed: Spontaneous Vaginal Delivery Type of Anesthesia: None Estimated Blood Loss: 50cc Time of Delivery: 03:56 Findings Description of Procedure: The patient was given 400 mcg of cytotec x 1 and the parts were found in the vagina after 6 hours from initial dose. A sterile hand was used to reach in the vagina and perfrom a sweep like motion to deliver the demised fetus. The cord was clamped and cut. The patient then wished to hold the baby. After inspection of the head, torso, back, limbs, umbilical insertion, and genital region (male). The appeared to have grossly normal structures without out low set ears or signs of obvious trisomy or other defects. The placenta delivered then shortly after the fetus and was noted to be whole. A dark rim around the edge of the placenta was apparent and could represent circumvallate vs extreme prematurity. A bedside ultrasound was performed showing a thin endometrial strip with scan fluid only. No signs of retained placenta present. The patient tolerated the procedure well and and is now resting in stable condition. She was given a second dose of oral cytotec prior to delivery and is now being started on pitocin. Presentation: Vertex Amniotic Membrane Rupture Type: Spontaneous Time of Membrane Rupture: 0700 02/05/23 Amniotic Fluid Description: Cloudy and Bloody Placental Delivery Description: Spontaneous Placenta Disposition: [facility] Cord Vessel Description: 3 Vessels (very difficult to assess ) Cord Entanglement: None (1 minute): 0 (5 minute): 0 Post Vaginal Delivery Medications Given After Delivery: IV Pitocin Episiotomy Description: None Laceration: None Complication Complications: None Multi Select Codes Urinary/Genital Urinary/Genital CPT Codes: 95164 Vaginal Delivery [facility]
--- NOTE | 2023-02-06 04:28 | DCINST_ITS ---
Discharge Instructions Diet Discharge Diet: No restrictions Activity Discharge Activity: Return to Normal Activity, May Not Drive (while taking narcotic pain medications.) and May Shower May resume sexual activity in: 4-6 weeks Dressing / Incision Call your doctor if your incision/area has: Continuous Slow Oozing, Sudden Increased Bleeding, Increased Pain/ Swelling, Increased Redness and Foul Smelling Discharge Follow Up Care Please Follow Up With: Kirsten Lindsay, When: Call [phone] to make an appointment with your doctor in 6 weeks. If you had elevated blood pressure or 4th degree laceration, you will need to be seen in 2 weeks. Test Results: Test results from this visit will be discussed in further detail at your follow- up appointment, if applicable. Discharge Plan Admission Admit Date/Time: 02/05/23 14:40 Attending Provider: Kirsten Lindsay Primary Care Provider: Junior Sheikh Discharge Orders/Prescriptions Prescriptions: No Action thor root extract 50 mg tablet PO pyridoxine (vitamin B6) 100 mg tablet 100 mg PO DAILY vit,[id number] 1 TABLET tablet 1 tab PO DAILY Referrals / Follow Up: Junior Sheikh PAIsaacC [Primary Care Provider] -
[2023-02-06 07:38] LABS: Absolute Lymphocyte Count 2.31 X10^3/uL (0.83-4.51); Basophil# 0.03 X10^3/uL; Basophil% 0.2 % (0-1); Eosinophil# 0.03 X10^3/uL; Eosinophils% 0.2 % (0-5); Hematocrit 33.3 % (37-47); Hemoglobin 11.3 g/dL (12.0-15.0); Lymphocyte # 2.31 X10^3/ul (0.83-4.51); Lymphocyte % 12.8 % (19-41); Mean Corp Hgb Conc 33.9 g/dL (32-36); Mean Corpuscular Hgb 30.4 pg (27.0-32.0); Mean Corpuscular Volume 89.5 fL (81-99); Mean Platelet Vol. 10.7 fl (6.2-12.0); Monocyte# 0.61 X10^3/uL; Monocyte% 3.4 % (0-10); NRBC Flagged by Analyzer 0 % (0-5); Neutrophil # 14.99 X10^3/uL (2.7-7.7); Neutrophil % 82.7 % (47-70); Platelet Count 202 K/mm3 (150-450); RBC Distribution Width CV 12.7 % (11.6-14.6); RBC Distribution Width SD 41.4 fl (35.1-43.9); Red Blood Count 3.72 M/mm3 (4.2-5.4); White Blood Count 18.1 K/mm3 (4.4-11.0)
--- NOTE | 2023-02-06 09:41 | NURSING ---
IBCLC at bedside to discuss after a loss. Explained to patient that her milk might still come in. Discussed options to help prevent and comfort measures if it does come in. Patient very tearful, at bedside providing support. Both and patient states understanding.
[2023-02-06 11:12] LABS: Pathology Specimen OB SEE PATHOLOGY REPORT
[2023-02-08 15:07] LABS: Anti-Cardiolipin Ab, IgA, Qn < 9 APL U/mL (0-11); Anti-Cardiolipin Ab, IgG, Qn < 9 GPL U/mL (0-14); Anti-Cardiolipin Ab, IgM, Qn < 9 MPL U/mL (0-12); Beta-2-Glycoprotein I IgA <9 (0-25); Beta-2-Glycoprotein I IgG <9 (0-20); Beta-2-Glycoprotein I IgM <9 (0-32); CMV Acute Antibody IgM < 30.0 AU/mL (0.0-29.9); CMV Antibody IgG < 0.60 U/mL (0.00-0.59); Dilute Prothrombin Time (dPT) 32.7 sec (0.0-47.6); Dilute Russell Viper Venom 33.4 sec (0.0-47.0); Interpretation Comment: (.); PARVOVIRUS B19 IGG 7.4 index (0.0-0.8); PARVOVIRUS B19 IGM 0.3 index (0.0-0.8); PTT-LA 36.8 sec (0.0-43.5); Thrombin Time 15.5 sec (0.0-23.0); Toxoplasma Gondii IgG < 3.0 IU/mL (0.0-7.1); Toxoplasma Gondii IgM < 3.0 AU/mL (0.0-7.9); dPT Confirm Ratio 1.05 Ratio (0.00-1.34)
== END 2023-02-06 10:50 | disposition home or self-care (01) | DRG 805 ==
LOC: ED 12:48 → WP 14:50
PROVIDERS: Admitting Provider Obstetrics & Gynecology; Emergency Provider Emergency Medicine; PCP Physician Assistant; Visit Provider Obstetrics & Gynecology
DX: O41.1220 Chorioamnionitis, second trimester, not applicable or unspecified (principal); Z37.1 Single stillbirth; O45.92 Premature separation of placenta, unspecified, second trimester; O60.12X0 Preterm labor second trimester with preterm delivery second trimester, not applicable or unspecified; O99.42 Diseases of the circulatory system complicating childbirth; I73.00 Raynaud's syndrome without gangrene; O42.012 Preterm premature rupture of membranes, onset of labor within 24 hours of rupture, second trimester; Z3A.15 15 weeks gestation of pregnancy; Z87.59 Personal history of other complications of pregnancy, childbirth and the puerperium
CPT/HCPCS: 59050; 76801; 76816; 84443; 85014; 85018; 85025; 85384; 85460; 85610; 85730; 86146; 86147; 86644; 86645; 86747; 86777; 86778; 86780; 86850; 86900; 86901; 87070; 87075; 87077; 87086; 87186; 87205; 88305; 88307; 99221; 99284; J7040; J7120; A4216; G0378

== ENCOUNTER → 2023-05-28 | Outpatient (CLI) | payer OTHER, MEDICAID, SELFPAY ==
[2023-05-28 13:56] LABS: hCG Titer Quant., Serum 476 mIU/mL (1-3)
== END | disposition home or self-care (01) ==
PROVIDERS: PCP Physician Assistant; Referring Provider Obstetrics & Gynecology; Visit Provider Obstetrics & Gynecology
DX: N91.2 Amenorrhea, unspecified (principal)
CPT/HCPCS: 36415; 84702